=== PATIENT | female | born 1970 | race Hispanic/Latino ===

== ENCOUNTER → 2017-07-16 | Day surgery (SDC) | payer OTHER ==
[~2017-07-16] VITALS: Ht 154.9 cm; Wt 89.1 kg
[~2017-07-16] MED LIST: Bupivacaine-MPF 0.5% 30 mL Inj INFILTRATE ONE; CeFAZolin Inj 2 GM in Dextrose 5% 50 ML IV ONE; CeFAZolin Inj 2 gm / 50mL D5W IV ONE; Dexamethasone 4 mg/mL Inj IVPUSH PRN; EPHEDrine Sulfate 50 mg/mL Inj IVPUSH PRN; Gentamicin 40 mg/mL 2 mL Inj IRRIGATION ONE; HYDROcodone-APAP 5-325 mg Tablet PO PRN; HYDROmorphone 1 mg/mL Inj IVPUSH PRN; Lactated Ringer's 1,000 ML IV SCH; Lactated Ringer's 500 ML IV PRN; MELO-259 PO; METF500T4 PO; MetoCLOpramide 5 mg/mL 2 mL Inj IVPUSH PRN; MetoCLOpramide 5 mg/mL 2 mL Inj ONE; Ondansetron 2 mg/mL 2 mL Inj IVPUSH PRN; Ondansetron 2 mg/mL 2 mL Inj ONE; Phenylephrine 10,000 mCg/mL Inj IVPUSH PRN; Propofol 10,000 mCg/mL 20 mL Inj ONE; fentaNYL-PF 50 mCg/mL 2 mL Inj IVPUSH PRN
[2017-07-16 07:10] VITALS: BP 115/76; PULSE 78; RESP 16; O2SAT 99
[2017-07-16] MEDS: Lactated Ringer's 1,000 ML IV SCH ×2 (07:18→07:28)
--- NOTE | 2017-07-16 07:20 | PCM.HPANE ---
Patient Data Surgeon Admitting Provider: Attending Provider:Rod Segovia DPM Primary Care Physician:Helena Dobbs MD Other Provider:Rubina Suggs Anesthesia Reason for Visit Left Foot Plantar Fasciitis Ht/WT & BMI Height (Feet): 5 Height (Inches): 1.00 Weight (Kilograms): 89.1 Body Mass Index 37.00 Allergies Coded Allergies: No Known Allergies (Unverified Allergy, 06/16/12) Past Anesthesia History Anesthesia History: Denies:: Anesthesia Reactions, Fam Anesthesia Reaction, Fam Malignant Hypertherm, Malignant Hyperthermia Diabetes History Hx Diabetes?: Yes Type of Diabetes: Type II Glycemic Control: Oral Medication Current Bedside Blood Glucose: 147 MRSA MRSA: No Medications Home Meds Incl Beta Miguel: No Reported Medications Metformin 500 Mg [id number] Mg PO DAILY Ref 0 07/13/17 Meloxicam 7.5 Mg Tablet7.5 Mg PO BID 30 Days Ref 0 07/13/17 Discontinued Reported Medications Ascorbic Acid-Expunged Drug, Do Not Renew! (Vitamin C-Expunged Drug, Do Not Renew!)500 Mg [id number] Mg PO BID 06/18/12 Ferrous Sulfate-Expunged Drug, Do Not Renew! (Feosol-Expunged Drug, Do Not Renew !)325 Mg [id number] Mg PO BID 06/18/12 Docusate Sod-Expunged Drug, Do Not Renew! 100 Mg [id number] Mg PO TID PRN as needed for constipation. 06/18/12 Oxycodone/APAP-Expunged Drug, Do Not Renew! (Percocet 5/325-Expunged Drug, Do Not Renew!)1 Each Tablet1-2 Tab PO Q4-6H as needed for pain. 06/18/12 Ibuprofen-Expunged Drug, Do Not Renew! (Motrin-Expunged Drug, Do Not Renew!)200 Mg [id number] Mg PO Q6 PRN as needed for pain. 06/13/12 History History of ENT Problems?: No HEENT History: Denies:: Abnormal Airway Cataracts Difficult Intubation Dysphagia Glaucoma Hearing Problem Sinus Problem TMJ Denture Type: None Teeth Condition: Within Normal Limits Hx of Heart Problems?: No Cardiovascular History: Denies:: AICD Abdominal Aortic Aneurism Atrial Fibrillation Cardiac Surgery Chest Pain Congestive Heart Failure Coronary Artery Disease Edema Heart Murmur Hypertension Irregular Heartbeat Pacemaker Peripheral Vascular Rheumatic Fever Thrombophlebitis Valvular Heart Disease Hx of Respiratory Problem?: No Respiratory History: Denies:: Asthma COPD Chest Surgery Cough Dyspnea Emphysema Hemoptysis Oxygen Administration Pneumonia Pulmonary Embolism Tuberculosis Use of C-PAP Machine Use of Inhalers / NEBS Hx Neurologic Problems?: No Neurological History: Positive for:: Dizziness (INNER EAR INFECTION SEVERAL WEEKS AGO) Denies:: CVA Headaches Multiple Sclerosis Parkinson's Disease Seizures Hx of GI Problems?: Yes Hx of Problems?: No Female Hx: Denies:: Currently (BTL, hysterectomy) Hx Musculoskeletal Problems?: Yes Musculoskeletal History: Positive for:: Musculoskeletal Trauma (left foot plantar fascitis current admission problem) Psycho Social History: Denies:: Hx Depression (remote hx of ) Hx Surgeries?: Yes (TUBAL LIG & C SECTION, ENDO MARKUS, hyst) Hx Any Other Health Problems?: Yes Other History: Denies:: Thyroid Disease History Blood Transfusions: Denies:: Blood Transfuse Reaction Blood Transfusions Hx Diabetes: YesBedside Blood Glucose: 147 Hx Alcohol Use: YesHx Substance Use: NoHave You Smoked inLast 12 mo: Yes ( light- 1 pack every 2 weeks) Stop/Bang Treated for Sleep Apnea?: No Do You Have a CPAP Machine?: No S-Snoring: Do You Snore Loudly: Yes T-Tired: feel tired, fatigued: Yes O-Obsered: Observed not breath: Yes P-Blood Pressure: treated: No B- Body Mass Index > 35 kg/m2: Yes A- Age over 50: No N- Neck Large Circumference: Yes G- Gender Male: No NATASHA Total Score: 5 NATASHA Risk Assessment: Low Risk, <3 Yes Risk Assessment Category Category 1A: Patient has history of documented sleep apnea, and HAS NOT received any narcotic, sedative or anesthesia administration during this stay. Category 1B: Patient has history of documented sleep apnea, and HAS received any narcotic , sedative or anesthesia administration during this stay Category 2: Patient has SUSPECTED Obstructive Sleep Apnea, and HAS received any narcotic , sedative or anesthesia administration during this stay. Category 3: Patient has SUSPECTED Obstructive Sleep Apnea and HAS NOT received narcotic, sedative or anesthesia administration during this stay. Category 4: Outpatient in Procedural Areas with known sleep apnea or who screen positive for High Risk via the STOP/BANG questionnaire. Exam Exam Vital Signs Vital Signs Date Time Temp Pulse Resp B/P Pulse Ox O2 Delivery O2 Flow Rate FiO2 07/16/17 07:10 36.1 78 16 115/76 99 Room Air General Appearance: Oriented X3 HEENT/AIRWAY: MP 2 Lungs: Normal Air Movement Heart: Regular Rate/Rhythm Meds/Labs/Diagnostics Admission Meds Current Medications Lactated Ringer's (Lr) 1,000 ml @ 120 mls/hr Q8H20M IV Last administered on t 07:18; Start 07/16/17 at 05:00; Stop 07/16/17 at 13:19 Bedside Blood Glucose: 147 Plan Impression Patient chart reviewed, patient interviewed and anesthestic plan with risks, benefits, and alternatives discussed, and informed consent obtained. ASA Physical Status: ASA3 Severe Disease Anesthetic Plan: GA Bene/Risks/Altern/Consents: Yes HP Complete Prior to Induction: Yes Eros Fisher MD Jul 16, 2017 07:20
[2017-07-16 09:40] VITALS: BP 98/66; PULSE 80; RESP 16; O2SAT 96
[2017-07-16 09:44] VITALS: BP 123/67; PULSE 80; RESP 16; O2SAT 96
[2017-07-16 09:50] VITALS: BP 120/70; PULSE 72; RESP 16; O2SAT 98
--- NOTE | 2017-07-16 10:04 | PCM.PODPO ---
Podiatry Operative Report Date of Service: Jul 16, 2017 Date of Service Jul 16, 2017 Pre Operative Diagnosis Chronic plantar fasciitis, Jean Baptiste's neuritis, gastrocnemius equinus left lower extremity Post Operative Diagnosis Same, possible neuroma versus lipoma overlying the proximal medial plantar fascia, excised and sent to pathology for gross exam Procedure #1 gastrocnemius recession left #2 tarsal tunnel release and release of Jean Baptiste's nerve left #3 subtotal plantar fasciectomy left #4 excision of soft tissue mass lipoma versus neuroma plantar medial left heel Surgeon Surgeon: Rod Segovia DPM Assistants: None Indication for Procedure Chronic left heel pain Findings Same Details of Procedure Patient was brought to the operating suite and placed on the table in the supine position. Surgical timeout was observed. Upon initiation of general anesthesia by the anesthesiologist attention was directed to the posterior calf to wear anatomic landmarks were delineated and incisional placement marked. This was also performed at the plantar medial heel. The sites were infiltrated with approximately 20 cc 1% lidocaine with epinephrine and 0.5% Marcaine without epinephrine. The extremity was then prepped and draped in the usual aseptic manner. Attention was directed to the posterior calf where an approximately 2 cm incision was made medial to midline at the level of the gastrocnemius aponeurosis. This incision was deepened via sharp and blunt dissection, the lesser saphenous vein was retracted laterally and the peritenon incised. The gastrocnemius aponeurosis was transversely sectioned utilizing a 67 Barbour blade and with the knee extended the ankle was dorsiflexed approximately 1.5 cm of lengthening was achieved improving ankle range of motion to +10 of dorsiflexion. The site was then copiously irrigated reviewed and peritenon was repaired with 4-0 Vicryl, subcutaneous tissues reapproximated with 4-0 Vicryl and skin with 4-0 Prolene.. Attention was then directed to the plantar medial heel. On approximately 6 cm incision was made on the medial aspect of the heel extending to the mid plantar surface of the level of the proximal plantar fascia. This incision was deepened via sharp and blunt dissection. Cauterization of small bleeders was performed. Self-retaining retractors were applied. There was noted to be a fairly large 2 x 3 cm fibrofatty mass overlying the proximal aspect of the medial plantar fascia which was felt to represent a lipoma versus possible traumatic neuroma and a decision was made to excise this lesion. The lesion was from the surrounding soft tissues and underlying plantar fascia via sharp and blunt dissection and sent to pathology for gross and microscopic exam. Anatomy was exposed utilizing a rongeur forcep to remove adipose tissue to expose the medial band of the plantar fascia, the deep fascia was incised. The skin was tented proximally and deep fascia was incised and released along the course of the neurovascular bundle. The abductor hallucis muscle was then retracted plantarward and the fascia between the quadratus plantar and abductor hallucis was released from dorsal to plantar. The muscle belly was then retracted dorsally and complete release of the intermuscular fascia performed from plantar to proximal. There was some modest bleeding from the venae comitantes which was stayed with direct pressure initially however cruising continued, Gelfoam was applied and a pneumatic tourniquet was placed and inflated after exsanguination to 250 mmHg to aid in achieving good hemostasis. Next the medial band of the plantar fascia was resected and a 1 x 1 cm section of the fascia excised. The release was assessed via digital probing and noted to be complete. The site was copiously irrigated with antibiotic solution, deep tissues were reapproximated with 3-0 Vicryl subcutaneous tissues with 4-0 Vicryl and skin with 3-0 Prolene. The tourniquet was released no significant bleeding was noted after several minutes. Additional local anesthetic consisting of approximately 4 cc 1% lidocaine with epinephrine and 0.5% Marcaine plain was infiltrated followed by an antibiotic ointment Adaptic dressing to both sites. A bulky mildly compressive gauze bandage was applied followed by a well-padded posterior splint with the ankle at 90 to the leg. Patient was extubated uneventfully and left the operating suite in apparently satisfactory condition. There were no significant complications. Grafts, Implants: None Complications There were no periprocedural complications identified. Condition Stable Anesthetic Administered: GA Drains: None Catheters: None Output, Estimated Blood Loss: 20 Blood Admin during surgery: No Surgical Cast or Splint: Well-padded Short Leg Splint Surgical Specimen Removed: Yes Specimen sent to Pathology: Yes Post Operative Plan Patient has received verbal and written postoperative instruction, will remain nonweightbearing on the left lower extremity until the incision heals fully. Return appointment made in 5 days Rod Segovia DPM Jul 16, 2017 10:04
[2017-07-16 10:05] VITALS: BP 124/81; PULSE 76; RESP 16; O2SAT 98
[2017-07-16 10:30] VITALS: BP 118/74; PULSE 74; O2SAT 98
--- NOTE | 2017-07-16 12:39 | PCM.ANEP1 ---
Post Anesthesia PACU Phase 1 Assessment Vital Signs Vital Signs Date Time Temp Pulse Resp B/P Pulse Ox O2 Delivery O2 Flow Rate FiO2 07/16/17 10:30 74 118/74 98 Room Air 07/16/17 10:05 76 16 124/81 98 Room Air 07/16/17 09:50 72 16 120/70 98 Room Air 07/16/17 09:44 80 16 123/67 96 Room Air 07/16/17 09:40 37.2 80 16 98/66 96 Room Air 07/16/17 07:10 36.1 78 16 115/76 99 Room Air Anesthetic Administered: GA Level of Alertness: Awake, talking Pain: No Nausea or Vomiting: No CV Function & Hydration Stable: Yes Airway Device: Lungs: Normal Air Movement PACU Phase 2 Assessment Patient Instructions Provided: N/A Eros Fisher MD Jul 16, 2017 12:39
--- NOTE | 2017-07-20 14:38 | PATH ---
SURGICAL PATHOLOGY Attending Physician:Rod Segovia DPM CASE STATUS: Signed Out PATIENT NAME: TURNER VALDIVIA PID: [id number] : 1970 DATE COLLECTED:07/16/2017 20:58 SPECIMEN: 1: Soft Tissue Mass, Biopsy 2: Soft Tissue Mass, Biopsy CLINICAL HISTORY: LEFT FOOT PLANTAR FASCITIS 1). SOFT TISSUE MASS LEFT FOOT 2). PLANTAR FASCIA LEFT FOOT FINAL DIAGNOSIS: 1.SOFT TISSUE MASS, LEFT FOOT, EXCISION: - MATURE ADIPOSE TISSUE COMPATIBLE WITH LIPOMA. 2.PLANTAR FASCIA, LEFT FOOT, EXCISION: - FRAGMENT OF FIBROCARTILAGE WITH DEGENERATIVE CHANGE. - ATTACHED FRAGMENT OF UNREMARKABLE SKELETAL MUSCLE AND FIBROADIPOSE TISSUE. ICD10 M72.9 GROSS DESCRIPTION: The specimens are received in formalin, labeled with the patient's name, and sublabeled as the following: (1) soft tissue mass left foot; (2) plantar fascia left foot. (1) The specimen consists of a piece of al-yellow rubbery lobular adipose tissue (4.5 x 2.6 x 0.7 cm). The cut surface is homogenous and unremarkable. Ink code: black-resection margin. Section code: (1A) adipose tissue, serially sectioned, telesales representative. (2) The specimen consists of a piece of florez-al firm fibrous tissue (1.5 x 0.5 x 0.5 cm). The cut surface is thomas and bright white. Ink code: black-resection margin. Section code: (2A) tissue. Specimen entirely submitted. 07/17/17 MICRO DESCRIPTION: See diagnosis. ICD-9 CODES: CPT CODES: 1: 03787 2: 68426 Electronically Signed Out Sanket Liriano MD [facility] [address], [place] [address] Technical component performed at [facility], [facility] [address], [place], [address]
== END | disposition home or self-care (01) ==
LOC: SAS 06:01
PROVIDERS: ATTEND Podiatrist
DX: M21.6X2 Other acquired deformities of left foot (principal); M72.2 Plantar fascial fibromatosis; G57.92 Unspecified mononeuropathy of left lower limb; M72.9 Fibroblastic disorder, unspecified; B35.3 Tinea pedis; M79.672 Pain in left foot; E11.9 Type 2 diabetes mellitus without complications; F17.210 Nicotine dependence, cigarettes, uncomplicated; Z79.84 Long term (current) use of oral hypoglycemic drugs; Z90.710 Acquired absence of both cervix and uterus
CPT/HCPCS: 27687; 28060; 64704; J0690; J1580; J2405; J2704; J2765; J7120